=== PATIENT | male | born 1945 | race Caucasian/White ===

== ENCOUNTER 2016-07-19 16:49 | Inpatient (IN) | payer OTHER ==
[~2016-07-19] VITALS: Ht 162.6 cm; Wt 122.4 kg
[~2016-07-19 16:49] MED LIST: ADVAIR 100/501 DISK IH; ALBUTEROL2.5 MG/3 M IH; ALDACTONE25 MG PO; AMARYL4 MG PO; AMLODIPINE BESY10 MG PO; AMLODIPINE BESYL5 MG PO; ATORVASTATIN CA20 MG PO; BETIMOL 0.100 DROP/5 BOTH EYES; C-10001000 MG PO; CARDIZEM60 MG PO; CEFDINIR300 MG PO; CENTRUM SILVER1 EAC3 PO; COLACE100 MG PO; COSOPT EYE DROPS5 ML BOTH EYES; COUMADIN10 MG PO; COUMADIN5 MG PO; COZAAR100 MG PO; DAILY VITAMIN1 EAC8 PO; DIOVAN160 MG PO; DURAGESIC25 MCG TD; E-400 C-500 &1 EACH PO; FLEET ENEMA EX230 ML PR; FUROSEMIDE PO; FUROSEMIDE40 MG PO; GLIMEPIRIDE4 MG PO; GLUCOPHAGE500 MG PO; GLUCOVANCE 51 TABLET PO; GLYBURIDE-METF1 EAC3 PO; GLYBURIDE/METFORMIN PO; HYCODAN SYRUP480 ML PO; IMDUR120 MG PO; ISTALOL5 ML BOTH EYES; JANTOVEN5 MG PO; K-DUR20 MEQ PO; KLOR-CON M2020 MEQ PO; KLOR-CON20 MEQ PO; LAMISIL250 MG PO; LASIX20 MG PO; LASIX40 MG PO; LATANOPROST2.5 ML BOTH EYES; LEVEMIR FL100 UNIT/1 SC; LEVEMIR FL100 UNITS/ SC; LEVEMIR100 UNIT/2 SC; LEVOFLOXACIN750 MG PO; LIPITOR PO; LIPITOR20 MG PO; LOPRESSOR100 M1 PO; LOSARTAN POTAS100 MG PO; LUMIGAN 0.50 DROP/22 BOTH EYES; MAGNESIUM250 MG PO; MELATONIN10 M1 PO; MELATONIN10 M2 PO; MELATONIN3 MG PO; METAGLIP 5/51 TABLET; METFORMIN HCL500 MG PO; METOPROLOL SUC100 MG PO; METOPROLOL TAR100 MG PO; METOPROLOL TARTRATE PO; MIRALAX255 GM PO; MUCINEX DM ER1 EACH PO; NEURONTIN300 MG PO; NORVASC10 MG PO; NORVASC5 MG PO; NOVOLOG 10100 UNITS/; NOVOLOG 10100 UNITS/ SC; NOVOLOG PE100 UNITS/ SC; PERCOCET 5/31 TABLET PO; PLAVIX75 MG PO; POTASSIUM CHLO20 ME1 PO; POTASSIUM CHLORIDE PO; PREDNISONE20 MG PO; PROAIR HFA8.5 GM IH; PROVENTIL HFA6.7 GM IH; PROVENTIL,2.5 MG/3 M IH; SENTRY SENIOR1 EAC1 PO; SENTRY TABLET1 EACH PO; SPIRIVA1 INHALATI IH; SPIRONOLACTONE PO; SPIRONOLACTONE25 MG PO; SYMBICORT60 INHALA1 IH; TESSALON200 MG PO; TIMOLOL MALEATE15 M1 BOTH EYES; TIMOLOL MALEATE5 M1 BOTH EYES; TIMOPTIC-0100 DROP/5 BOTH EYES; TOPIRAMATE PO; TOPROL XL100 MG PO; TRAMADOL HCL50 MG PO; TYLENOL EXTRA500 MG PO; VALIUM5 MG PO; VITAMIN B-6100 MG PO; VITAMIN B-6200 MG PO; VITAMIN C1000 M1; VITAMIN C1000 M1 PO; VITAMIN C1000 MG PO; VITAMIN E400 UNIT PO; WARFARIN SODIUM10 MG PO; XALATAN2.5 ML BOTH EYES; [UNRECOGNIZED DRUG - OTHER]; vitamin b 6
[2016-07-19 17:29] LABS: HEMATOCRIT 41.2 % (38.0-50.0); MCH 30.2 PG (29.0-34.0); MCV 94.3 FL (86-99); MEAN PLAT.VOLUME 8.8 uM^3 (9.0-12.4); RBC DIS.WIDTH-CV 14.8 % (11.8-14.6); RBC DIS.WIDTH-SD 49.2 % (39-53)
[2016-07-19 17:30] LABS: PLATELET COUNT 269 K/uL (156-360); RED BLOOD COUNT 4.37 M/uL (4.00-5.50); WHITE BLOOD COUNT 8.3 K/uL (4.1-10.2)
[2016-07-19 17:38] LABS: CHLORIDE 103 mEq/L (99-109); POTASSIUM 4.5 mEq/L (3.7-5.4); SODIUM 138 mEq/L (136-147)
[2016-07-19 17:40] LABS: GLUCOSE 251 mg/dL (70-99)
[2016-07-19 17:41] LABS: ANION GAP 11 MEQ/L (2-14)
[2016-07-19 17:43] LABS: GFR ESTIMATE (CALCULATED) 58 mL/min/
[2016-07-19 17:44] LABS: UREA NITROGEN (BUN) 15 mg/dL (9-23)
[2016-07-19 17:52] LABS: TROP-I INTERPRETATION NEGATIVE; TROPONIN-I 0.02 ng/mL (0.0-0.30)
[2016-07-19] MEDS ORDERED: LIPITOR80 MG PO (18:44)
[2016-07-19] MEDS ORDERED: NOVOLOG PE100 UNITS/ SC (18:45)
[2016-07-19] MEDS ORDERED: FUROSEMIDE40 MG PO (18:45)
[2016-07-19] MEDS ORDERED: FLONASE16 G1 BOTH NARES (18:46)
[2016-07-19] MEDS ORDERED: LEVEMIR FL100 UNIT/1 SC (18:46)
[2016-07-19 19:53] LABS: PROTHROMBIN TIME 20.4 (9.2-11.2)
[2016-07-19 20:27] VITALS: BP 147/81
[2016-07-19 21:25] LABS: POINT-OF-CARE METER ID UU13113700
[2016-07-19 23:57] LABS: TROP-I INTERPRETATION NEGATIVE; TROPONIN-I 0.06 ng/mL (0.0-0.30)
[2016-07-20 00:07] VITALS: BP 142/80
[2016-07-20 04:31] VITALS: BP 131/70
[2016-07-20 04:32] LABS: INTER. NORMALIZED RATIO 2.5
[2016-07-20 04:44] LABS: TROP-I INTERPRETATION NEGATIVE; TROPONIN-I 0.05 ng/mL (0.0-0.30)
[2016-07-20 08:00] VITALS: BP 147/82
[2016-07-20 11:40] VITALS: BP 120/70
[2016-07-20 15:50] LABS: INFLUENZA A VIRAL ANTIGEN NEGATIVE; INFLUENZA B VIRAL ANTIGEN NEGATIVE
[2016-07-20 16:00] VITALS: BP 124/79
[2016-07-20 21:42] VITALS: BP 128/60
[2016-07-21 04:00] VITALS: BP 120/63
[2016-07-21 07:12] LABS: INTER. NORMALIZED RATIO 2.3; PROTHROMBIN TIME 23.8 (9.2-11.2)
[2016-07-21 07:52] LABS: INTERNAL CONTROL VALID? YES
[2016-07-21 08:53] LABS: POINT-OF-CARE METER ID UU13113831
[2016-07-21 08:55] VITALS: BP 137/65
[2016-07-21 12:28] LABS: POINT-OF-CARE METER ID UU14162513
[2016-07-21 12:38] VITALS: BP 105/55
[2016-07-21 16:57] VITALS: BP 132/73
[2016-07-21 17:54] LABS: POINT-OF-CARE METER ID UU14162513
[2016-07-21 20:42] VITALS: BP 144/68
[2016-07-21 22:17] LABS: POINT-OF-CARE METER ID UU13113831
[2016-07-22] VITALS (7 sets, daily range): BP systolic 117–154; BP diastolic 58–81
[2016-07-22 06:24] LABS: INTER. NORMALIZED RATIO 2.7
[2016-07-22 07:27] LABS: POINT-OF-CARE METER ID UU13113831
[2016-07-22 10:02] LABS: POINT-OF-CARE METER ID UU13113700
[2016-07-22 12:22] LABS: POINT-OF-CARE METER ID UU14162513
[2016-07-23 03:38] VITALS: BP 133/84
[2016-07-23 06:34] LABS: HEMATOCRIT 36.3 % (38.0-50.0); MCH 29.8 PG (29.0-34.0); MCHC 32.2 G/DL (30.0-36.0); MCV 92.6 FL (86-99); MEAN PLAT.VOLUME 9.3 uM^3 (9.0-12.4); PLATELET COUNT 212 K/uL (156-360); RBC DIS.WIDTH-CV 14.7 % (11.8-14.6); RBC DIS.WIDTH-SD 49.8 % (39-53); RED BLOOD COUNT 3.92 M/uL (4.00-5.50); WHITE BLOOD COUNT 6.1 K/uL (4.1-10.2)
[2016-07-23 06:52] LABS: INTER. NORMALIZED RATIO 3.3; PROTHROMBIN TIME 34.8 (9.2-11.2)
[2016-07-23 07:02] LABS: ANION GAP 10 MEQ/L (2-14); CHLORIDE 101 MEQ/L (99-109); GFR ESTIMATE (CALCULATED) 58 mL/min/; GLUCOSE 138 mg/dL (70-99); MAGNESIUM 1.7 mg/dl (1.3-2.7); POTASSIUM 4.1 MEQ/L (3.7-5.4); SAMPLE HEMOLYSIS CHECK 0; SAMPLE ICTERIC CHECK 0; SAMPLE LIPEMIA CHECK 0; SODIUM 139 MEQ/L (136-147); UREA NITROGEN (BUN) 25 mg/dL (9-23)
[2016-07-23 09:25] VITALS: BP 129/68
[2016-07-23 11:27] LABS: POINT-OF-CARE METER ID UU13113717
[2016-07-23 11:47] VITALS: BP 126/55
[2016-07-23 16:00] VITALS: BP 144/60
[2016-07-23 16:32] LABS: POINT-OF-CARE METER ID UU13113717
[2016-07-23 19:41] VITALS: BP 124/63
[2016-07-23 23:13] VITALS: BP 116/57
[2016-07-24 05:56] LABS: POINT-OF-CARE METER ID UU13113725
[2016-07-24 06:40] LABS: INTER. NORMALIZED RATIO 3.3; PROTHROMBIN TIME 34.7 (9.2-11.2)
[2016-07-24 07:40] VITALS: BP 142/65
[2016-07-24] MEDS ORDERED: LOSARTAN POTAS100 MG PO (10:55)
[2016-07-24] MEDS ORDERED: ASPIR-LOW81 MG PO (10:55)
[2016-07-24] MEDS ORDERED: BENZONATATE100 MG PO (10:59)
[2016-07-24 11:10] LABS: POINT-OF-CARE METER ID UU13113725
[2016-07-24 15:50] VITALS: BP 119/67
== END 2016-07-24 16:34 | disposition home health service (06) | DRG 205 ==
LOC: EME 16:49 → EDOF 18:41 → 5WEST 20:11 → 5EAST 07-20 13:19 → 5WEST 07-20 13:19 → 5EAST 07-22 13:41
PROVIDERS: Family Medicine; Hospitalist; Internal Medicine; Physician Assistant
PROC: 5A09357 Assistance with Respiratory Ventilation, Less than 24 Consecutive Hours, Continuous Positive Airway Pressure (ICD-10-PCS; principal; 2016-07-20)
DX: J95.89 Other postprocedural complications and disorders of respiratory system, not elsewhere classified (principal); J90 Pleural effusion, not elsewhere classified; J44.0 Chronic obstructive pulmonary disease with (acute) lower respiratory infection; J15.9 Unspecified bacterial pneumonia; J20.9 Acute bronchitis, unspecified; J44.1 Chronic obstructive pulmonary disease with (acute) exacerbation; I11.0 Hypertensive heart disease with heart failure; I50.30 Unspecified diastolic (congestive) heart failure; I48.2 Chronic atrial fibrillation; G47.33 Obstructive sleep apnea (adult) (pediatric); I27.2 Other secondary pulmonary hypertension; E87.70 Fluid overload, unspecified; J84.10 Pulmonary fibrosis, unspecified; E66.01 Morbid (severe) obesity due to excess calories; Z68.42 Body mass index [BMI] 45.0-49.9, adult; I71.2 Thoracic aortic aneurysm, without rupture; E11.9 Type 2 diabetes mellitus without complications; I25.10 Atherosclerotic heart disease of native coronary artery without angina pectoris; I45.10 Unspecified right bundle-branch block; Z95.5 Presence of coronary angioplasty implant and graft; Z95.1 Presence of aortocoronary bypass graft
CPT/HCPCS: 71010; 71020; 71250; 80048; 82948; 83605; 83735; 84484; 85027; 85610; 87040; 87070; 87205; 87449; 87502; 93005; 94640; 94640 76; 94660; 94799; 97530 GP; 99202; 99281; 99285; G0378; J1815; J1940; J1956; J7030

== ENCOUNTER 2016-12-02 14:31 | Observation (INO) | payer OTHER ==
[~2016-12-02] VITALS: Ht 165.1 cm; Wt 123.0 kg
[~2016-12-02 14:31] MED LIST changes: +ASPIR-LOW81 MG PO; +BENZONATATE100 MG PO; +FLONASE16 G1 BOTH NARES; +LIPITOR80 MG PO
[2016-12-02 15:27] LABS: HEMATOCRIT 39.1 % (38.0-50.0); MCH 28.9 PG (29.0-34.0); MCV 87.7 FL (86-99); MEAN PLAT.VOLUME 9.4 uM^3 (9.0-12.4); PLATELET COUNT 181 K/uL (156-360); RBC DIS.WIDTH-CV 15.1 % (11.8-14.6); RBC DIS.WIDTH-SD 48.7 % (39-53); RED BLOOD COUNT 4.46 M/uL (4.00-5.50); WHITE BLOOD COUNT 7.2 K/uL (4.1-10.2)
[2016-12-02 15:37] LABS: CHLORIDE 102 mEq/L (99-109); SODIUM 139 mEq/L (136-147)
[2016-12-02 15:39] LABS: GLUCOSE 303 mg/dL (70-99)
[2016-12-02 15:40] LABS: ANION GAP 10 MEQ/L (2-14)
[2016-12-02 15:43] LABS: GFR ESTIMATE (CALCULATED) 58 mL/min/; UREA NITROGEN (BUN) 18 mg/dL (9-23)
[2016-12-02 15:51] LABS: TROP-I INTERPRETATION NEGATIVE; TROPONIN-I 0.01 ng/mL (0.0-0.30)
[2016-12-02 16:23] LABS: INTER. NORMALIZED RATIO 1.9; PROTHROMBIN TIME 19.4 (9.2-11.2); PTT 32.7 (25-32)
[2016-12-02] MEDS ORDERED: DAILY VITE1 EAC1 PO (17:26)
[2016-12-02] MEDS ORDERED: VITAMIN E400 UNIT PO (17:34)
[2016-12-02] MEDS ORDERED: BENADRYL ITCH28.3 GM TP (17:34)
[2016-12-02] MEDS ORDERED: LO-DOSE ASPIRIN81 M2 PO (17:34)
[2016-12-02] MEDS ORDERED: MECLIZINE HCL25 MG PO (17:36)
[2016-12-02] MEDS ORDERED: MELATONIN10 M2 PO (17:36)
[2016-12-02 18:28] VITALS: BP 163/90
[2016-12-02 19:46] VITALS: BP 154/72
[2016-12-02 20:52] LABS: TROP-I INTERPRETATION NEGATIVE; TROPONIN-I 0.01 ng/mL (0.0-0.30)
[2016-12-02 20:55] LABS: POINT-OF-CARE METER ID UU13113831
[2016-12-02 22:40] LABS: ADD MIUA? YES; BILIRUBIN NEGATIVE; BLOOD SMALL; COLOR YELLOW ((YELLOW)); GLUCOSE (STRIP) >=500; KETONES NEGATIVE; LEUKOCYTES NEGATIVE; NITRITE NEGATIVE; PROTEIN (STRIP) 100; SPECIFIC GRAVITY 1.008 (1.000-1.030); UROBILINOGEN 0.2 MG/DL (0.2-1.0)
[2016-12-02 22:59] LABS: BACTERIA NONE SEEN /HPF; EPITHELIAL CELLS NONE SEEN /HPF; HYALINE CASTS 0-5 /LPF; MUCUS TRACE /LPF; RED BLOOD CELLS 15-20 /HPF (0-5); WHITE BLOOD CELLS 0-5 /HPF (0-5)
[2016-12-03 00:23] VITALS: BP 151/86
[2016-12-03 05:36] VITALS: BP 146/82
[2016-12-03 06:18] LABS: TROP-I INTERPRETATION NEGATIVE; TROPONIN-I 0.03 ng/mL (0.0-0.30)
[2016-12-03 06:30] LABS: HEMATOCRIT 34.5 % (38.0-50.0); MCH 28.9 PG (29.0-34.0); MCV 87.6 FL (86-99); MEAN PLAT.VOLUME 9.7 uM^3 (9.0-12.4); PLATELET COUNT 171 K/uL (156-360); RBC DIS.WIDTH-CV 15.2 % (11.8-14.6); RBC DIS.WIDTH-SD 48.9 % (39-53); RED BLOOD COUNT 3.94 M/uL (4.00-5.50); WHITE BLOOD COUNT 6.6 K/uL (4.1-10.2)
[2016-12-03 06:41] LABS: INTER. NORMALIZED RATIO 1.8; PROTHROMBIN TIME 18.9 (9.2-11.2)
[2016-12-03 08:02] LABS: CHLORIDE 105 mEq/L (99-109); POTASSIUM 3.6 mEq/L (3.7-5.4); SODIUM 141 mEq/L (136-147)
[2016-12-03 08:06] LABS: ANION GAP 10 MEQ/L (2-14)
[2016-12-03 08:08] LABS: GFR ESTIMATE (CALCULATED) > 59 mL/min/
[2016-12-03 08:09] LABS: GLUCOSE 85 mg/dL (70-99); UREA NITROGEN (BUN) 19 mg/dL (9-23)
[2016-12-03 09:14] VITALS: BP 143/86
== END 2016-12-03 09:59 | disposition home or self-care (01) ==
LOC: EME 14:31 → EDOF 16:32 → 5WEST 16:32
PROVIDERS: Internal Medicine; Physician Assistant
DX: R07.89 Other chest pain (principal); I11.0 Hypertensive heart disease with heart failure; I50.32 Chronic diastolic (congestive) heart failure; E11.9 Type 2 diabetes mellitus without complications; G47.33 Obstructive sleep apnea (adult) (pediatric); I48.2 Chronic atrial fibrillation; I25.10 Atherosclerotic heart disease of native coronary artery without angina pectoris; I45.10 Unspecified right bundle-branch block; I27.2 Other secondary pulmonary hypertension; I34.0 Nonrheumatic mitral (valve) insufficiency; I25.2 Old myocardial infarction; E78.5 Hyperlipidemia, unspecified; Z95.1 Presence of aortocoronary bypass graft; Z79.4 Long term (current) use of insulin; E66.9 Obesity, unspecified; Z68.42 Body mass index [BMI] 45.0-49.9, adult
CPT/HCPCS: 71020; 80048; 81003; 82948; 84484; 85027; 85610; 85730; 87086; 93005; 94660; 99281; 99285; G0378; J1815; J7030

== ENCOUNTER → 2017-02-05 | Emergency (ER) | payer OTHER ==
[~2017-02-05] VITALS: Ht 167.6 cm; Wt 125.1 kg
[~2017-02-05] MED LIST changes: +BENADRYL ITCH28.3 GM TP; +DAILY VITE1 EAC1 PO; +ERYTHROMYC1 APPLICAT LEFT EYE; +LO-DOSE ASPIRIN81 M2 PO; +MECLIZINE HCL25 MG PO
[2017-02-05 04:36] VITALS: BP 190/78
== END | disposition home or self-care (01) ==
LOC: EME 02:23
DX: S05.02XA Injury of conjunctiva and corneal abrasion without foreign body, left eye, initial encounter (principal); X58.XXXA Exposure to other specified factors, initial encounter; I10 Essential (primary) hypertension; E78.5 Hyperlipidemia, unspecified; J44.9 Chronic obstructive pulmonary disease, unspecified; E11.9 Type 2 diabetes mellitus without complications; Z79.4 Long term (current) use of insulin; Z95.1 Presence of aortocoronary bypass graft; Z95.5 Presence of coronary angioplasty implant and graft; Z79.82 Long term (current) use of aspirin; Z79.01 Long term (current) use of anticoagulants
CPT/HCPCS: 99281; 99283

== ENCOUNTER 2017-02-19 13:04 | Emergency (ER) | payer OTHER ==
[~2017-02-19] VITALS: Ht 170.2 cm; Wt 121.0 kg
[2017-02-19 14:56] LABS: MCH 29.1 PG (29.0-34.0); MCHC 32.8 G/DL (30.0-36.0); MCV 88.6 FL (86-99); MEAN PLAT.VOLUME 9.4 uM^3 (9.0-12.4); PLATELET COUNT 176 K/uL (156-360); RBC DIS.WIDTH-CV 13.9 % (11.8-14.6); RBC DIS.WIDTH-SD 45.1 % (39-53); WHITE BLOOD COUNT 6.1 K/uL (4.1-10.2)
[2017-02-19 15:09] LABS: CHLORIDE 103 mEq/L (99-109)
[2017-02-19 15:10] LABS: POTASSIUM 4.1 mEq/L (3.7-5.4); SODIUM 141 mEq/L (136-147)
[2017-02-19 15:11] LABS: GLUCOSE 134 mg/dL (70-99)
[2017-02-19 15:13] LABS: ANION GAP 10 MEQ/L (2-14)
[2017-02-19 15:15] LABS: GFR ESTIMATE (CALCULATED) > 59 mL/min/
[2017-02-19 15:16] LABS: UREA NITROGEN (BUN) 23 mg/dL (9-23)
[2017-02-19 15:25] LABS: ADD MIUA? YES; BILIRUBIN NEGATIVE; BLOOD SMALL; COLOR STRAW ((YELLOW)); GLUCOSE (STRIP) 150; KETONES NEGATIVE; LEUKOCYTES NEGATIVE; NITRITE NEGATIVE; PROTEIN (STRIP) 30; SPECIFIC GRAVITY 1.009 (1.000-1.030); UROBILINOGEN 0.2 MG/DL (0.2-1.0)
[2017-02-19] MEDS ORDERED: FLEXERIL10 MG PO (16:09)
[2017-02-19] MEDS ORDERED: NAPROSYN500 MG PO (16:09)
[2017-02-19 16:15] LABS: BACTERIA NONE SEEN /HPF; CALCIUM OXALATE CRYSTALS 1+ /HPF; EPITHELIAL CELLS NONE SEEN /HPF; MUCUS NONE SEEN /LPF; WHITE BLOOD CELLS 0-5 /HPF (0-5)
[2017-02-19 16:46] VITALS: BP 141/88
== END 2017-02-19 16:48 | disposition home or self-care (01) ==
LOC: EME 13:04
PROVIDERS: Emergency Medicine
DX: R10.9 Unspecified abdominal pain (principal); M54.9 Dorsalgia, unspecified; I11.0 Hypertensive heart disease with heart failure; I50.9 Heart failure, unspecified; E11.9 Type 2 diabetes mellitus without complications; Z79.4 Long term (current) use of insulin; I48.91 Unspecified atrial fibrillation; Z79.01 Long term (current) use of anticoagulants; E78.5 Hyperlipidemia, unspecified; J44.9 Chronic obstructive pulmonary disease, unspecified; I25.2 Old myocardial infarction; Z95.1 Presence of aortocoronary bypass graft; Z95.5 Presence of coronary angioplasty implant and graft
CPT/HCPCS: 74176; 80048; 81003; 83605; 85027; 87086; 99281; 99283

== ENCOUNTER 2017-04-05 21:29 | Emergency (ER) | payer OTHER ==
[~2017-04-05] VITALS: Ht 170.2 cm; Wt 118.8 kg
[~2017-04-05 21:29] MED LIST changes: +FLEXERIL10 MG PO; +NAPROSYN500 MG PO
[2017-04-05] MEDS ORDERED: ULTRAM50 MG PO (23:15)
[2017-04-05 23:35] VITALS: BP 164/71
== END 2017-04-05 23:36 | disposition home or self-care (01) ==
LOC: EME 21:29
DX: S80.01XA Contusion of right knee, initial encounter (principal); S80.02XA Contusion of left knee, initial encounter; S80.212A Abrasion, left knee, initial encounter; W19.XXXA Unspecified fall, initial encounter; M17.0 Bilateral primary osteoarthritis of knee; R29.6 Repeated falls; Z91.81 History of falling; I10 Essential (primary) hypertension; E78.5 Hyperlipidemia, unspecified; J44.9 Chronic obstructive pulmonary disease, unspecified; E11.9 Type 2 diabetes mellitus without complications; Z79.4 Long term (current) use of insulin; Z79.01 Long term (current) use of anticoagulants; Z79.82 Long term (current) use of aspirin; Z95.1 Presence of aortocoronary bypass graft; Z95.5 Presence of coronary angioplasty implant and graft
CPT/HCPCS: 73564; 99281; 99284

== ENCOUNTER 2017-07-14 15:38 | Inpatient (IN) | payer OTHER ==
[~2017-07-14] VITALS: Ht 170.2 cm; Wt 117.7 kg
[~2017-07-14 15:38] MED LIST changes: +ULTRAM50 MG PO
[2017-07-14 16:46] LABS: HEMATOCRIT 37.5 % (38.0-50.0); HEMOGLOBIN 12.7 G/DL (12.5-16.6); MCH 30.2 PG (29.0-34.0); MCHC 33.9 G/DL (30.0-36.0); MCV 89.3 FL (86-99); PLATELET COUNT 193 K/uL (156-360); RBC DIS.WIDTH-CV 13.6 % (11.8-14.6); WHITE BLOOD COUNT 8.9 K/uL (4.1-10.2)
[2017-07-14 16:59] LABS: CHLORIDE 100 mEq/L (99-109); POTASSIUM 3.9 mEq/L (3.7-5.4); SODIUM 136 mEq/L (136-147)
[2017-07-14 17:01] LABS: GLUCOSE 247 mg/dL (70-99)
[2017-07-14 17:05] LABS: CREATININE 1.1 mg/dL (0.6-1.3); GFR ESTIMATE (CALCULATED) > 59 mL/min/ (58.99-99999); UREA NITROGEN (BUN) 17 mg/dL (9-23)
[2017-07-14 18:52] LABS: PTT 41.7 SEC (25-37)
[2017-07-14 19:46] LABS: APPEARANCE CLEAR ((CLEAR)); BILIRUBIN NEGATIVE; BLOOD MODERATE; COLOR YELLOW ((YELLOW)); GLUCOSE (STRIP) 50; KETONES NEGATIVE; LEUKOCYTES NEGATIVE; NITRITE NEGATIVE; PROTEIN (STRIP) 100; SPECIFIC GRAVITY 1.009 (1.000-1.030); UROBILINOGEN 0.2 MG/DL (0.2-1.0)
[2017-07-14 19:48] LABS: BACTERIA NONE SEEN /HPF; EPITHELIAL CELLS NONE SEEN /HPF; MUCUS TRACE /LPF; RED BLOOD CELLS 40-50 /HPF (0-5); UCUL ADDED? NO; WHITE BLOOD CELLS 0-5 /HPF (0-5)
[2017-07-14 20:23] LABS: TROP-I INTERPRETATION NEGATIVE; TROPONIN-I 0.03 ng/mL (0.0-0.30)
[2017-07-15] VITALS (7 sets, daily range): BP systolic 131–179; BP diastolic 62–89
[2017-07-15 04:49] LABS: CHLORIDE 99 mEq/L (99-109); POTASSIUM 4.6 mEq/L (3.7-5.4); SODIUM 137 mEq/L (136-147)
[2017-07-15 04:50] LABS: MAGNESIUM 1.7 mg/dL (1.3-2.7)
[2017-07-15 04:51] LABS: GLUCOSE 301 mg/dL (70-99)
[2017-07-15 04:55] LABS: CREATININE 1.2 mg/dL (0.6-1.3); GFR ESTIMATE (CALCULATED) > 59 mL/min/ (58.99-99999)
[2017-07-15 04:56] LABS: UREA NITROGEN (BUN) 21 mg/dL (9-23)
[2017-07-15 06:52] LABS: Estimated Average Glucose 194 mg/dL (70-123); HEMOGLOBIN A1c (GLYCOHEMOGLOB) 8.4 % HGB (Below 5.7)
[2017-07-15 07:08] LABS: INTER. NORMALIZED RATIO 2.4
[2017-07-16 03:37] VITALS: BP 169/92
[2017-07-16 06:00] LABS: HEMATOCRIT 32.6 % (38.0-50.0); HEMOGLOBIN 10.8 G/DL (12.5-16.6); MCHC 33.1 G/DL (30.0-36.0); MCV 90.6 FL (86-99); PLATELET COUNT 165 K/uL (156-360); RBC DIS.WIDTH-CV 13.5 % (11.8-14.6); RBC DIS.WIDTH-SD 44.4 % (39-53); WHITE BLOOD COUNT 5.7 K/uL (4.1-10.2)
[2017-07-16 06:18] LABS: INTER. NORMALIZED RATIO 1.7
[2017-07-16 06:28] LABS: CHLORIDE 102 MEQ/L (99-109); CREATININE 1.1 MG/DL (0.6-1.3); GFR ESTIMATE (CALCULATED) > 59 mL/min/ (58.99-99999); GLUCOSE 224 mg/dL (70-99); POTASSIUM 3.7 MEQ/L (3.7-5.4); SODIUM 139 MEQ/L (136-147); UREA NITROGEN (BUN) 26 mg/dL (9-23)
[2017-07-16 07:56] VITALS: BP 177/88
[2017-07-16 11:48] VITALS: BP 126/75
[2017-07-16 16:00] VITALS: BP 149/75
[2017-07-16 20:15] VITALS: BP 159/79
[2017-07-16 23:22] VITALS: BP 147/78
[2017-07-17 03:35] VITALS: BP 153/92
[2017-07-17 05:32] LABS: HEMATOCRIT 32.6 % (38.0-50.0); HEMOGLOBIN 11.2 G/DL (12.5-16.6); MCH 30.4 PG (29.0-34.0); MCHC 34.4 G/DL (30.0-36.0); MCV 88.6 FL (86-99); PLATELET COUNT 199 K/uL (156-360); RBC DIS.WIDTH-CV 13.2 % (11.8-14.6); RBC DIS.WIDTH-SD 43.1 % (39-53); RED BLOOD COUNT 3.68 M/uL (4.00-5.50); WHITE BLOOD COUNT 7.5 K/uL (4.1-10.2)
[2017-07-17 05:37] LABS: INTER. NORMALIZED RATIO 1.8
[2017-07-17 05:54] LABS: CHLORIDE 98 MEQ/L (99-109); GFR ESTIMATE (CALCULATED) > 59 mL/min/ (58.99-99999); GLUCOSE 144 mg/dL (70-99); SODIUM 137 MEQ/L (136-147); UREA NITROGEN (BUN) 25 mg/dL (9-23)
[2017-07-17 07:52] VITALS: BP 162/88
[2017-07-17] MEDS ORDERED: CEFDINIR300 MG PO (10:19)
[2017-07-17] MEDS ORDERED: IMDUR60 MG PO (10:20)
[2017-07-17] MEDS ORDERED: FUROSEMIDE40 MG PO (10:22)
[2017-07-17] MEDS ORDERED: LEVEMIR100 UNIT/2 SC (10:23)
[2017-07-17] MEDS ORDERED: PREDNISONE20 MG PO (10:23)
[2017-07-17 11:53] VITALS: BP 154/82
== END 2017-07-17 12:36 | disposition home health service (06) | DRG 189 ==
LOC: EME 15:38 → RME 15:38 → EDOF 20:11 → 3EAST 20:11 → CANRESERV 20:14 → ENRESERV 20:14 → 3EAST 22:04
PROVIDERS: Hospitalist; Physician Assistant; Physician Assistant Medical
PROC: 5A09357 Assistance with Respiratory Ventilation, Less than 24 Consecutive Hours, Continuous Positive Airway Pressure (ICD-10-PCS; principal; 2017-07-15)
DX: J96.01 Acute respiratory failure with hypoxia (principal); I11.0 Hypertensive heart disease with heart failure; I50.33 Acute on chronic diastolic (congestive) heart failure; J44.0 Chronic obstructive pulmonary disease with (acute) lower respiratory infection; E66.01 Morbid (severe) obesity due to excess calories; Z68.41 Body mass index [BMI] 40.0-44.9, adult; G47.33 Obstructive sleep apnea (adult) (pediatric); I25.2 Old myocardial infarction; E11.65 Type 2 diabetes mellitus with hyperglycemia; E78.5 Hyperlipidemia, unspecified; I25.10 Atherosclerotic heart disease of native coronary artery without angina pectoris; Z91.19 Patient's noncompliance with other medical treatment and regimen; H40.9 Unspecified glaucoma; I08.3 Combined rheumatic disorders of mitral, aortic and tricuspid valves; J44.1 Chronic obstructive pulmonary disease with (acute) exacerbation; I27.20 Pulmonary hypertension, unspecified; I45.10 Unspecified right bundle-branch block; I48.2 Chronic atrial fibrillation; J20.9 Acute bronchitis, unspecified; J84.10 Pulmonary fibrosis, unspecified; R31.29 Other microscopic hematuria; D68.32 Hemorrhagic disorder due to extrinsic circulating anticoagulants; T45.515A Adverse effect of anticoagulants, initial encounter; Z79.01 Long term (current) use of anticoagulants; Z79.4 Long term (current) use of insulin; Z95.1 Presence of aortocoronary bypass graft; Z95.5 Presence of coronary angioplasty implant and graft
CPT/HCPCS: 71010; 71020; 71260; 73630; 80048; 81003; 82565; 82948; 83036; 83605; 83735; 83880; 84484; 84520; 85027; 85610; 85730; 87040; 93005; 94660; 94760; 94799; 99202; 99281; 99285; J1815; J1940; J7030; J7512

== ENCOUNTER 2017-08-20 16:07 | Emergency (ER) | payer OTHER ==
[~2017-08-20] VITALS: Ht 170.2 cm; Wt 115.9 kg
[~2017-08-20 16:07] MED LIST changes: +IMDUR60 MG PO
[2017-08-20] MEDS ORDERED: ULTRACET1 TABLET PO (21:15)
[2017-08-20] MEDS ORDERED: LIDODERM 5% P1 PATCH TD (21:15)
[2017-08-20] MEDS ORDERED: VALIUM2 MG PO (21:15)
[2017-08-20] MEDS ORDERED: PREDNISONE20 MG PO (21:17)
[2017-08-20 22:08] VITALS: BP 141/72
== END 2017-08-20 22:10 | disposition home or self-care (01) ==
LOC: EME 16:07
DX: S39.012A Strain of muscle, fascia and tendon of lower back, initial encounter (principal); M54.42 Lumbago with sciatica, left side; I25.2 Old myocardial infarction; W18.30XA Fall on same level, unspecified, initial encounter; Y92.481 Parking lot as the place of occurrence of the external cause; Z79.01 Long term (current) use of anticoagulants; Z95.1 Presence of aortocoronary bypass graft
CPT/HCPCS: 72100; 73502; 99281; 99284

== ENCOUNTER 2018-03-02 14:54 | Observation (INO) | payer OTHER ==
[~2018-03-02] VITALS: Ht 167.6 cm; Wt 115.6 kg
[~2018-03-02 14:54] MED LIST changes: +LIDODERM 5% P1 PATCH TD; +ULTRACET1 TABLET PO; +VALIUM2 MG PO
[2018-03-02 15:26] LABS: HEMATOCRIT 39.5 % (38.0-50.0); HEMOGLOBIN 13.3 G/DL (12.5-16.6); MCH 30.5 PG (29.0-34.0); MCHC 33.7 G/DL (30.0-36.0); MCV 90.6 FL (86-99); PLATELET COUNT 170 K/uL (156-360); RBC DIS.WIDTH-CV 14.6 % (11.8-14.6); RBC DIS.WIDTH-SD 48.4 % (39-53); RED BLOOD COUNT 4.36 M/uL (4.00-5.50); WHITE BLOOD COUNT 7.4 K/uL (4.1-10.2)
[2018-03-02 15:36] LABS: CHLORIDE 102 mEq/L (99-109); POTASSIUM 4.1 mEq/L (3.7-5.4); SODIUM 138 mEq/L (136-147)
[2018-03-02 15:37] LABS: GLUCOSE 211 mg/dL (70-99)
[2018-03-02 15:41] LABS: CREATININE 1.1 mg/dL (0.6-1.3); GFR ESTIMATE (CALCULATED) > 59 mL/min/ (58.99-99999)
[2018-03-02 15:42] LABS: UREA NITROGEN (BUN) 18 mg/dL (9-23)
[2018-03-02 15:48] LABS: TROP-I INTERPRETATION NEGATIVE; TROPONIN-I < 0.01 ng/mL (0.0-0.30)
[2018-03-02] MEDS ORDERED: TIMOLOL MALEATE15 M1 BOTH EYES ×2 (17:48→18:12)
[2018-03-02] MEDS ORDERED: VITAMIN E400 UNIT PO (17:49)
[2018-03-02] MEDS ORDERED: ATORVASTATIN CA80 MG PO (17:49)
[2018-03-02] MEDS ORDERED: MELATONIN5 M1 PO (17:51)
[2018-03-02] MEDS ORDERED: SUPER B-50 COM1 EAC1 PO (17:53)
[2018-03-02] MEDS ORDERED: WARFARIN SODIUM10 MG PO (17:53)
[2018-03-02] MEDS ORDERED: LOSARTAN POTASS50 MG PO (17:54)
[2018-03-02] MEDS ORDERED: POTASSIUM CHLO20 ME1 PO (17:54)
[2018-03-02] MEDS ORDERED: CENTRUM SILVER1 EAC1 PO (17:55)
[2018-03-02] MEDS ORDERED: TYLENOL EXTRA500 MG PO (17:56)
[2018-03-02] MEDS ORDERED: LASIX40 MG PO (17:58)
[2018-03-02] MEDS ORDERED: XALATAN2.5 ML BOTH EYES (18:06)
[2018-03-02] MEDS ORDERED: HUMALOG KW200 UNIT/1 SC ×2 (18:08)
[2018-03-02] MEDS ORDERED: NORVASC5 MG PO (18:09)
[2018-03-02 18:25] VITALS: BP 188/88
[2018-03-02 19:19] LABS: INTER. NORMALIZED RATIO 2.3
[2018-03-02 19:21] LABS: PTT 34.8 SEC (25-37)
[2018-03-02 19:31] VITALS: BP 188/91
[2018-03-02 22:57] LABS: TROP-I INTERPRETATION NEGATIVE; TROPONIN-I < 0.01 ng/mL (0.0-0.30)
[2018-03-03 00:06] VITALS: BP 185/95
[2018-03-03 04:19] VITALS: BP 139/89
[2018-03-03 05:16] LABS: HEMATOCRIT 36.3 % (38.0-50.0); HEMOGLOBIN 12.2 G/DL (12.5-16.6); MCHC 33.6 G/DL (30.0-36.0); MCV 89.4 FL (86-99); PLATELET COUNT 166 K/uL (156-360); RBC DIS.WIDTH-CV 14.6 % (11.8-14.6); RBC DIS.WIDTH-SD 47.2 % (39-53); RED BLOOD COUNT 4.06 M/uL (4.00-5.50); WHITE BLOOD COUNT 5.9 K/uL (4.1-10.2)
[2018-03-03 05:29] LABS: TROP-I INTERPRETATION NEGATIVE; TROPONIN-I < 0.01 ng/mL (0.0-0.30)
[2018-03-03 05:42] LABS: INTER. NORMALIZED RATIO 2.3
[2018-03-03 06:31] LABS: CHLORIDE 99 MEQ/L (99-109); GFR ESTIMATE (CALCULATED) > 59 mL/min/ (58.99-99999); GLUCOSE 276 mg/dL (70-99); SODIUM 136 MEQ/L (136-147); UREA NITROGEN (BUN) 23 mg/dL (9-23)
[2018-03-03 07:33] VITALS: BP 190/101
[2018-03-03 08:25] VITALS: BP 158/90
[2018-03-03 11:54] VITALS: BP 148/96
[2018-03-03] MEDS ORDERED: LEVOFLOXACIN750 MG PO (15:10)
[2018-03-03] MEDS ORDERED: PREDNISONE10 MG PO (15:16)
== END 2018-03-03 15:55 | disposition home or self-care (01) ==
LOC: EME 14:54 → EDOF 16:44 → 4SOUTH 16:44 → ENRESERV 17:10 → 4SOUTH 18:06
PROVIDERS: Hospitalist
DX: J44.1 Chronic obstructive pulmonary disease with (acute) exacerbation (principal); I25.10 Atherosclerotic heart disease of native coronary artery without angina pectoris; Z95.1 Presence of aortocoronary bypass graft; Z95.5 Presence of coronary angioplasty implant and graft; I25.2 Old myocardial infarction; E78.5 Hyperlipidemia, unspecified; I50.9 Heart failure, unspecified; I11.0 Hypertensive heart disease with heart failure; E11.9 Type 2 diabetes mellitus without complications; Z79.01 Long term (current) use of anticoagulants; Z79.82 Long term (current) use of aspirin; Z79.4 Long term (current) use of insulin; G47.33 Obstructive sleep apnea (adult) (pediatric); E66.9 Obesity, unspecified; I48.2 Chronic atrial fibrillation; I45.10 Unspecified right bundle-branch block; I27.20 Pulmonary hypertension, unspecified
CPT/HCPCS: 71046; 80048; 82948; 84484; 85027; 85610; 85730; 93005; 94640; 94799; 99281; 99285; G0378; J1815; J2920

== ENCOUNTER 2018-03-05 20:52 | Inpatient (IN) | payer OTHER ==
[~2018-03-05] VITALS: Ht 167.6 cm; Wt 120.6 kg
[~2018-03-05 20:52] MED LIST changes: +ATORVASTATIN CA80 MG PO; +CENTRUM SILVER1 EAC1 PO; +HUMALOG KW200 UNIT/1 SC; +LOSARTAN POTASS50 MG PO; +MELATONIN5 M1 PO; +PREDNISONE10 MG PO; +SUPER B-50 COM1 EAC1 PO
[2018-03-05 21:33] LABS: HEMATOCRIT 37.9 % (38.0-50.0); HEMOGLOBIN 12.5 G/DL (12.5-16.6); MCV 91.1 FL (86-99); PLATELET COUNT 190 K/uL (156-360); RBC DIS.WIDTH-CV 14.6 % (11.8-14.6); RED BLOOD COUNT 4.16 M/uL (4.00-5.50); WHITE BLOOD COUNT 7.8 K/uL (4.1-10.2)
[2018-03-05 21:40] LABS: CHLORIDE 99 mEq/L (99-109); SODIUM 135 mEq/L (136-147)
[2018-03-05 21:45] LABS: GFR ESTIMATE (CALCULATED) 37 mL/min/ (58.99-99999)
[2018-03-05 21:46] LABS: CREATININE 1.9 mg/dL (0.6-1.3); GLUCOSE 545 mg/dL (70-99); POTASSIUM 5.5 mEq/L (3.7-5.4); UREA NITROGEN (BUN) 40 mg/dL (9-23)
[2018-03-05 21:51] LABS: TROP-I INTERPRETATION NEGATIVE; TROPONIN-I 0.06 ng/mL (0.0-0.30)
[2018-03-05 22:36] LABS: ALBUMIN 4.1 g/dL (3.2-4.8)
[2018-03-05 22:39] LABS: TOTAL PROTEIN 7.2 g/dL (6.4-8.3)
[2018-03-05 22:40] LABS: TOTAL BILIRUBIN 0.7 mg/dL (0.0-1.0)
[2018-03-05 22:42] LABS: ALKALINE PHOSPHATASE 114 IU/L (3-129)
[2018-03-05 22:44] LABS: AST (GOT) 24 IU/L (2-34); DIRECT BILIRUBIN 0.2 mg/dL (0.0-0.3)
[2018-03-05 22:45] LABS: ALT (GPT) 24 IU/L (3-49)
[2018-03-05 22:54] LABS: CARBON DIOXIDE (BICARBONATE) 25.6 MEQ/L (20-31)
[2018-03-05 22:58] LABS: INTER. NORMALIZED RATIO 2.3
[2018-03-05 23:01] LABS: PTT 30.6 SEC (25-37)
[2018-03-06] VITALS (7 sets, daily range): BP systolic 139–183; BP diastolic 76–108
[2018-03-06 00:07] LABS: APPEARANCE CLEAR ((CLEAR)); BILIRUBIN NEGATIVE; BLOOD SMALL; COLOR STRAW ((YELLOW)); GLUCOSE (STRIP) >=500; KETONES NEGATIVE; LEUKOCYTES NEGATIVE; NITRITE NEGATIVE; PROTEIN (STRIP) 30; SPECIFIC GRAVITY 1.015 (1.000-1.030); UROBILINOGEN 0.2 MG/DL (0.2-1.0)
[2018-03-06 00:19] LABS: BACTERIA RARE /HPF; EPITHELIAL CELLS NONE SEEN /HPF; MUCUS NONE SEEN /LPF; RED BLOOD CELLS 0-5 /HPF (0-5); UCUL ADDED? NO; WHITE BLOOD CELLS 0-5 /HPF (0-5)
[2018-03-06] MEDS ORDERED: LEVAQUIN750 MG PO (00:23)
[2018-03-06] MEDS ORDERED: PREDNISONE10 MG PO ×2 (00:23→00:24)
[2018-03-06] MEDS ORDERED: LEVEMIR100 UNIT/2 SC (00:27)
[2018-03-06 00:59] LABS: CHLORIDE 104 mEq/L (99-109); SODIUM 139 mEq/L (136-147)
[2018-03-06 01:00] LABS: GLUCOSE 398 mg/dL (70-99)
[2018-03-06 01:04] LABS: CREATININE 1.6 mg/dL (0.6-1.3); GFR ESTIMATE (CALCULATED) 46 mL/min/ (58.99-99999); POTASSIUM 4.3 mEq/L (3.7-5.4)
[2018-03-06 01:05] LABS: UREA NITROGEN (BUN) 40 mg/dL (9-23)
[2018-03-06 02:01] LABS: TROP-I INTERPRETATION NEGATIVE; TROPONIN-I 0.09 ng/mL (0.0-0.30)
[2018-03-06 07:16] LABS: INTER. NORMALIZED RATIO 2.6
[2018-03-06 07:54] LABS: CHLORIDE 104 MEQ/L (99-109); CREATININE 1.2 MG/DL (0.6-1.3); GFR ESTIMATE (CALCULATED) > 59 mL/min/ (58.99-99999); POTASSIUM 3.8 MEQ/L (3.7-5.4); SODIUM 138 MEQ/L (136-147); UREA NITROGEN (BUN) 32 mg/dL (9-23)
[2018-03-06 07:56] LABS: TROPONIN-I 0.64 ng/mL (0.0-0.30)
[2018-03-06 07:57] LABS: TROP-I INTERPRETATION POSITIVE
[2018-03-06 08:06] LABS: GLUCOSE 197 mg/dL (70-99)
[2018-03-06 13:21] LABS: TROP-I INTERPRETATION INDETERMINATE; TROPONIN-I 0.55 ng/mL (0.0-0.30)
[2018-03-06 19:14] LABS: TROP-I INTERPRETATION INDETERMINATE; TROPONIN-I 0.35 ng/mL (0.0-0.30)
[2018-03-07 04:00] VITALS: BP 168/78
[2018-03-07 05:37] LABS: INTER. NORMALIZED RATIO 2.4
[2018-03-07 08:34] VITALS: BP 162/76
[2018-03-07 12:43] VITALS: BP 162/78
[2018-03-07 14:02] LABS: CHLORIDE 106 MEQ/L (99-109); CREATININE 1.1 MG/DL (0.6-1.3); GFR ESTIMATE (CALCULATED) > 59 mL/min/ (58.99-99999); GLUCOSE 262 mg/dL (70-99); SODIUM 137 MEQ/L (136-147); UREA NITROGEN (BUN) 26 mg/dL (9-23)
[2018-03-07 15:30] VITALS: BP 158/78
[2018-03-07] MEDS ORDERED: LUMIGAN 0.50 DROP/22 BOTH EYES (19:09)
[2018-03-07] MEDS ORDERED: TIMOLOL 0.5%-DO10 ML OP (19:10)
[2018-03-07 19:12] VITALS: BP 140/80
[2018-03-07 23:03] VITALS: BP 137/80
[2018-03-08 03:30] VITALS: BP 145/82
[2018-03-08 05:05] LABS: INTER. NORMALIZED RATIO 1.7
[2018-03-08 07:03] VITALS: BP 168/86
[2018-03-08 20:30] VITALS: BP 170/99
[2018-03-08 23:30] VITALS: BP 168/82
[2018-03-09 04:00] VITALS: BP 158/79
[2018-03-09 05:42] LABS: INTER. NORMALIZED RATIO 1.5
[2018-03-09 05:49] LABS: BASOPHIL (%) 0.6 % (0-1); EOSINOPHIL (%) 1.7 % (0-5); EOSINOPHIL COUNT 0.1 K/uL (0-0.3); HEMOGLOBIN 11.5 G/DL (12.5-16.6); IMMATURE GRANULOCYTE (%) 0.8 % (0.0-0.7); LYMPHOCYTE (%) 13.3 % (15-42); MCH 29.6 PG (29.0-34.0); MCHC 32.9 G/DL (30.0-36.0); MCV 90.2 FL (86-99); MONOCYTE (%) 8.7 % (3-12); MONOCYTE COUNT 0.6 K/uL (0-0.8); NEUTROPHIL (%) 74.9 % (45-76); NEUTROPHIL COUNT 5.3 K/uL (1.8-6.4); PLATELET COUNT 167 K/uL (156-360); RBC DIS.WIDTH-CV 14.7 % (11.8-14.6); RED BLOOD COUNT 3.88 M/uL (4.00-5.50); WHITE BLOOD COUNT 7.1 K/uL (4.1-10.2)
[2018-03-09 06:01] LABS: CHLORIDE 104 MEQ/L (99-109); CREATININE 1.2 MG/DL (0.6-1.3); GFR ESTIMATE (CALCULATED) > 59 mL/min/ (58.99-99999); GLUCOSE 214 mg/dL (70-99); POTASSIUM 4.2 MEQ/L (3.7-5.4); SODIUM 139 MEQ/L (136-147); UREA NITROGEN (BUN) 23 mg/dL (9-23)
[2018-03-09 08:11] VITALS: BP 152/70
[2018-03-09 11:29] VITALS: BP 128/66
[2018-03-09 16:42] VITALS: BP 150/70
[2018-03-09 19:55] VITALS: BP 167/79
[2018-03-09 23:01] VITALS: BP 142/94
[2018-03-10 03:32] VITALS: BP 198/95
[2018-03-10 05:42] LABS: INTER. NORMALIZED RATIO 1.4
[2018-03-10 07:30] VITALS: BP 169/92
[2018-03-10 12:10] VITALS: BP 145/86
[2018-03-10 16:41] VITALS: BP 142/87
[2018-03-10 18:59] VITALS: BP 164/73
[2018-03-10 22:31] VITALS: BP 184/92
[2018-03-11] VITALS (7 sets, daily range): BP systolic 134–186; BP diastolic 80–100
[2018-03-11 05:44] LABS: INTER. NORMALIZED RATIO 1.4
[2018-03-11 08:57] LABS: HEMATOCRIT 37.9 % (38.0-50.0); HEMOGLOBIN 12.5 G/DL (12.5-16.6); MCH 29.6 PG (29.0-34.0); MCV 89.8 FL (86-99); PLATELET COUNT 183 K/uL (156-360); RBC DIS.WIDTH-CV 14.9 % (11.8-14.6); RED BLOOD COUNT 4.22 M/uL (4.00-5.50); WHITE BLOOD COUNT 6.9 K/uL (4.1-10.2)
[2018-03-11 09:32] LABS: CHLORIDE 103 MEQ/L (99-109); CREATININE 1.1 MG/DL (0.6-1.3); GFR ESTIMATE (CALCULATED) > 59 mL/min/ (58.99-99999); GLUCOSE 168 mg/dL (70-99); POTASSIUM 3.7 MEQ/L (3.7-5.4); SODIUM 137 MEQ/L (136-147); UREA NITROGEN (BUN) 17 mg/dL (9-23)
[2018-03-12 01:38] VITALS: BP 174/99
[2018-03-12 03:58] VITALS: BP 131/77
[2018-03-12 05:42] LABS: INTER. NORMALIZED RATIO 1.5
[2018-03-12 05:43] LABS: HEMATOCRIT 34.3 % (38.0-50.0); HEMOGLOBIN 11.3 G/DL (12.5-16.6); MCH 29.5 PG (29.0-34.0); MCHC 32.9 G/DL (30.0-36.0); MCV 89.6 FL (86-99); PLATELET COUNT 158 K/uL (156-360); RBC DIS.WIDTH-CV 14.6 % (11.8-14.6); RED BLOOD COUNT 3.83 M/uL (4.00-5.50); WHITE BLOOD COUNT 7.2 K/uL (4.1-10.2)
[2018-03-12 06:05] LABS: CHLORIDE 105 MEQ/L (99-109); GFR ESTIMATE (CALCULATED) > 59 mL/min/ (58.99-99999); GLUCOSE 210 mg/dL (70-99); POTASSIUM 3.8 MEQ/L (3.7-5.4); SODIUM 136 MEQ/L (136-147); UREA NITROGEN (BUN) 18 mg/dL (9-23)
[2018-03-12 07:00] VITALS: BP 137/82
[2018-03-12] MEDS ORDERED: DILTIAZEM 24HR240 MG PO (11:24)
[2018-03-12] MEDS ORDERED: TYLENOL REGULA325 MG PO (11:24)
[2018-03-12] MEDS ORDERED: BENZONATATE100 MG PO (11:24)
[2018-03-12] MEDS ORDERED: LISINOPRIL20 MG PO (11:24)
[2018-03-12] MEDS ORDERED: CLOPIDOGREL75 MG PO (11:24)
[2018-03-12] MEDS ORDERED: NITROSTAT0.4 MG SL (11:24)
== END 2018-03-12 13:40 | disposition home or self-care (01) | DRG 251 ==
LOC: EME 20:52 → 4EAST 03-06 01:29 → EDOF 03-06 01:29 → ENRESERV 03-06 01:34 → 4EAST 03-06 02:51
PROVIDERS: Hospitalist; Internal Medicine; Internal Medicine Cardiovascular Disease; Physician Assistant
DX: I24.9 Acute ischemic heart disease, unspecified (principal); N17.9 Acute kidney failure, unspecified; E87.5 Hyperkalemia; E11.65 Type 2 diabetes mellitus with hyperglycemia; T38.0X5A Adverse effect of glucocorticoids and synthetic analogues, initial encounter; I11.0 Hypertensive heart disease with heart failure; I50.9 Heart failure, unspecified; J44.9 Chronic obstructive pulmonary disease, unspecified; I48.2 Chronic atrial fibrillation; I25.10 Atherosclerotic heart disease of native coronary artery without angina pectoris; E78.5 Hyperlipidemia, unspecified; G47.33 Obstructive sleep apnea (adult) (pediatric); R79.1 Abnormal coagulation profile; T45.515A Adverse effect of anticoagulants, initial encounter; F41.9 Anxiety disorder, unspecified; E66.01 Morbid (severe) obesity due to excess calories; Z68.41 Body mass index [BMI] 40.0-44.9, adult; I25.2 Old myocardial infarction; Z79.01 Long term (current) use of anticoagulants; Z79.4 Long term (current) use of insulin; Z79.82 Long term (current) use of aspirin; Z95.1 Presence of aortocoronary bypass graft; Z95.5 Presence of coronary angioplasty implant and graft
CPT/HCPCS: 71046; 80048; 80048 91; 80076; 81003; 82010; 82803; 82948; 83735; 84484; 85025; 85027; 85347; 85610; 85730; 87641; 93005; 94640; 94760; 94799; 99281; 99285; C1725; C1760; C1769; C1887; C1894; G0378; J0360; J0583; J1200; J1644; J1815; J2250; J2920; J3010; J3430; J7030; J7050; J7512